=== PATIENT | female | born 1995 | race Caucasian/White ===

== ENCOUNTER 2018-12-04 20:17 | Inpatient (IN) | payer OTHER ==
[2018-12-04] MEDS: SODIUM CHLORIDE 0.9% FLUSH 10 ML SOL IV SCH (20:30)
[2018-12-04 20:57] LABS: BASOPHILS % (AUTO) 1 % (0-3); EOSINOPHILS % (AUTO) 6 % (0-9); HEMATOCRIT 35 % (35-47); HEMOGLOBIN 11.8 gm/dl (12.0-15.5); LYMPHOCYTES % (AUTO) 18.4 % (10-50); MEAN CORPUSCULAR HEMOGLOBIN 31.5 pg (27.0-32.0); MEAN CORPUSCULAR VOLUME 93 fL (81-99); MONOCYTES % (AUTO) 7.8 % (0-12); NEUTROPHILS % (AUTO) 67.5 % (37-80)
[2018-12-04] MEDS ORDERED: CARBOPROST 250 MCG/ML SOL IM PRN (21:13)
[2018-12-04] MEDS ORDERED: SODIUM CHLORIDE 0.9% FLUSH 10 ML SOL IV PRN (21:13)
[2018-12-04] MEDS ORDERED: OXYTOCIN 10000 MU/ML SOL IM PRN (21:13)
[2018-12-04] MEDS ORDERED: FENTANYL 100MCG/2ML SOL IV PRN (21:13)
[2018-12-04] MEDS ORDERED: LACTATED RINGERS 1,000 ML IV PRN (21:13)
[2018-12-04] MEDS ORDERED: METHYLERGONOVINE MALEATE 0.2 MG/ML SOL IM PRN (21:13)
[2018-12-04] MEDS ORDERED: MEPIVACAINE HCL 1% MPF 30 ML/VIAL SOL INFIL PRN (21:13)
[2018-12-05] MEDS ORDERED: SODIUM CHLORIDE 0.9% 1000ML 500 ML IV ONE (01:49)
[2018-12-05] MEDS ORDERED: EPHEDRINE SULFATE 50 MG/ML SOL IV PRN (06:34)
[2018-12-05] MEDS ORDERED: NALOXONE HYDROCHLORIDE 0.4 MG/ML SOL IV PRN (06:34)
[2018-12-05] MEDS ORDERED: DIPHENHYDRAMINE 50 MG/ML SOL IV PRN (06:34)
[2018-12-05] MEDS ORDERED: NALBUPHINE HCL 20 MG/ML SOL IV PRN (06:34)
[2018-12-05] MEDS ORDERED: ROPIVACAINE HYDROCHLORIDE 5 MG/ML SOL ONE ×2 (06:37→07:48)
[2018-12-05] MEDS: LACTATED RINGERS 1,000 ML IV SCH ×6 (06:54→22:50)
[2018-12-05] MEDS ORDERED: LIDOCAINE HCL 2% MPF 10 ML SOL ONE ×2 (07:10→14:04)
[2018-12-05] MEDS: SODIUM CHLORIDE 0.9% FLUSH 10 ML SOL IV SCH ×3 (07:24→22:35)
[2018-12-05] MEDS ORDERED: FENTANYL 250 MCG/ 5ML SOL ONE (07:48)
[2018-12-05] MEDS ORDERED: TERBUTALINE SULFATE 1 MG/ML SOL SC PRN (09:50)
[2018-12-05] MEDS ORDERED: OXYTOCIN 10000 MU/ML 20,000 MU in LACTATED RINGERS 1,000 ML IV SCH (10:00)
[2018-12-05] MEDS ORDERED: LACTATED RINGERS 1,000 ML IV SCH (10:00)
[2018-12-05] MEDS ORDERED: LACTATED RINGERS 1,000 ML ONE (10:07)
[2018-12-05] MEDS ORDERED: OXYTOCIN 10000 MU/ML SOL ONE (10:07)
[2018-12-05] MEDS ORDERED: FLEET ENEMA PR PRN (21:56)
[2018-12-05] MEDS ORDERED: TEMAZEPAM 15MG 15 MG CAP PO PRN (21:56)
[2018-12-05] MEDS ORDERED: WITCH HAZEL 1 EA PAD TOP PRN (21:56)
[2018-12-05] MEDS ORDERED: APAP/HYDROCODONE 1 EACH TABLET PO PRN (21:56)
[2018-12-05] MEDS ORDERED: METHYLERGONOVINE MALEATE 0.2 MG TAB PO PRN (21:56)
[2018-12-05] MEDS ORDERED: BISACODYL 10 MG SUP PR PRN (21:56)
[2018-12-05] MEDS ORDERED: BENZOCAINE/MENTHOL 1 SPR TOP PRN (21:56)
[2018-12-06] MEDS: IBUPROFEN 600 MG TAB PO PRN ×3 (04:53→21:34)
[2018-12-06] MEDS: SODIUM CHLORIDE 0.9% FLUSH 10 ML SOL IV SCH (04:56)
[2018-12-06] MEDS: LACTATED RINGERS 1,000 ML IV SCH (06:48)
[2018-12-06] MEDS: DOCUSATE SODIUM 100 MG SGL PO SCH ×2 (08:40→21:32)
[2018-12-06 11:34] VITALS: RESP 16
[2018-12-06] MEDS ORDERED: FOLIC ACID 1 MG TAB PO SCH (21:00)
[2018-12-06] MEDS ORDERED: MULTIVITAMIN2 1 EA TAB PO SCH (21:00)
[2018-12-07] MEDS: IBUPROFEN 600 MG TAB PO PRN (06:18)
[2018-12-07 06:29] VITALS: BP 118/73; PULSE 88; O2SAT 99
[2018-12-07 09:36] VITALS: TEMP 97.5
== END 2018-12-07 13:30 | disposition home or self-care (01) | DRG 807 ==
LOC: OB 20:17 → OBSVTOIN 20:17 → OB 12-06 11:36
PROVIDERS: ADMIT Family Medicine; ATTEND Family Medicine
PROC: 10E0XZZ Delivery of Products of Conception, External Approach (ICD-10-PCS; principal; 2018-12-05)
PROC: 10907ZC Drainage of Amniotic Fluid, Therapeutic from Products of Conception, Via Natural or Artificial Opening (ICD-10-PCS; 2018-12-05)
PROC: 0U7C7ZZ Dilation of Cervix, Via Natural or Artificial Opening (ICD-10-PCS; 2018-12-05)
PROC: 10H073Z Insertion of Monitoring Electrode into Products of Conception, Via Natural or Artificial Opening (ICD-10-PCS; 2018-12-05)
DX: O80 Encounter for full-term uncomplicated delivery (principal); Z37.0 Single live birth; Z3A.41 41 weeks gestation of pregnancy; O64.8XX0 Obstructed labor due to other malposition and malpresentation, not applicable or unspecified
CPT/HCPCS: 36415; 59025; 85018; 85025; 94762; J2590; J2795; J3010; A9270-GY